=== PATIENT | male | born 1955 | race African-American/Black ===

== ENCOUNTER 2020-01-07 10:44 | Inpatient (IN) | payer BC ==
[2020-01-01 17:04] LABS: BASOPHILS % (AUTO) 0.4 % (0-1); EOSINOPHILS # (AUTO) 0.1 X10'3 (0-0.9); EOSINOPHILS % (AUTO) 1.9 % (0-6); LYMPHOCYTES % (AUTO) 44.5 % (21-51); MEAN CORPUSCULAR HEMOGLOBIN 28.5 PG (27.0-31.0); MEAN CORPUSCULAR HGB CONC 32.4 g/dL (33.0-36.5); MEAN CORPUSCULAR VOLUME 88.1 FL (78-98); MEAN PLATELET VOLUME 8.6 FL (7.4-10.4); MONOCYTES # (AUTO) 0.4 X10'3 (0-0.9); MONOCYTES % (AUTO) 9.3 % (2-12); NEUTROPHILS # (AUTO) 1.9 X10'3 (1.8-7.7); NEUTROPHILS % (AUTO) 43.9 % (42-75); PRE OP HEMATOCRIT 47.5 % (42.0-52.0); PRE OP HEMOGLOBIN 15.4 g/dL (14.0-17.9); PRE OP PLATELET COUNT 210 X10'3 (140-440); RED BLOOD COUNT 5.39 X10'6 (4.70-6.10); RED CELL DISTRIBUTION WIDTH 15.7 % (11.5-14.5)
[2020-01-01 17:17] LABS: ALBUMIN 4.2 G/DL (3.4-5.0); ALBUMIN/GLOBULIN RATIO 1.2 (1.1-1.5); ALKALINE PHOSPHATASE 101 IU/L (46-116); BLOOD UREA NITROGEN 19 MG/DL (7-18); BUN/CREATININE RATIO 19.4 (5.4-32.0); CALCIUM 9.5 MG/DL (8.5-10.1); CHLORIDE 105 MMOL/L (99-107); CREATININE 0.98 MG/DL (0.60-1.10); PRE OP ALT 38 U/L (30-65); PRE OP ANION GAP 5 (8-16); PRE OP AST 21 U/L (10-37); PRE OP BILIRUB, TOTAL 0.4 MG/DL (0.0-1.0); PRE OP GLUCOSE 95 MG/DL (70-104); PRE OP POTASSIUM 3.9 MMOL/L (3.4-5.1); PRE OP SODIUM 142 MMOL/L (135-145); TOTAL CARBON DIOXIDE 31.8 MMOL/L (24-32); TOTAL PROTEIN 7.6 G/DL (6.4-8.2); eGFR > 90 ML/MIN
[2020-01-07] VITALS (15 sets, daily range): BP systolic 105–169; BP diastolic 59–103
[~2020-01-07] VITALS: Ht 188 cm; Wt 122.0 kg
[~2020-01-07 10:44] MED LIST: ACET-2144 PO; DICL35CA PO; MULT-1085 PO; NAPR220T67 PO; NORMAL SALINE IV ONE; OLME1TAB82 PO; TRANEXAMIC ACID IV ONE; ceFAZolin inj. 3,000 MG in normal saline 100ml IV soln 100 ML IV ONE; famotidine 20mg tablet PO ONE; ringers solution, lacted 1,000 ML IV SCH; vancomycin 1,500 MG in NS 300ml IV soln IV ONE
[2020-01-07] MEDS ORDERED: ringers solution, lacted 1,000 ML IV SCH (13:11)
[2020-01-07] MEDS ORDERED: proCHLORperazine 10 MG/2 ml inj IV PRN (13:15)
[2020-01-07] MEDS ORDERED: morphine 4 MG/ML inj SYRINge IV PRN (13:15)
[2020-01-07] MEDS ORDERED: meperidine/PF 25mg/ml syringe IV PRN ×3 (13:15)
[2020-01-07] MEDS ORDERED: morphine 2 MG/ML inj. syringe IV PRN (13:15)
[2020-01-07] MEDS ORDERED: ondansetron/PF 4mg/2ml inj IV PRN ×2 (13:15→18:50)
[2020-01-07] MEDS ORDERED: ROPIVAcaine 0.2%/PF PUMP/bolus 550 ML INTERSCALE SCH (15:13)
[2020-01-07] MEDS ORDERED: ROPIVAcaine 0.2% (10 MG/5 ML) BOLUS INJECTION INTERSCALE PRN (15:15)
[2020-01-07] MEDS ORDERED: ketorolac trometh. 30mg/ml inj. ONE (15:39)
[2020-01-07] MEDS ORDERED: ROPIVAcaine 0.5% (5mg/ml) 30ml vial ONE ×2 (15:39→16:19)
[2020-01-07] MEDS ORDERED: MIDAZolam 1mg/ml 10ml vial ONE (16:15)
[2020-01-07] MEDS ORDERED: fentaNYL/PF 50MCG/1 ML 2ML syringe ONE (16:15)
[2020-01-07] MEDS ORDERED: BUPIVAcaine/dex-water/PF 7.5 mg/ml 2ml ampul ONE (16:22)
[2020-01-07] MEDS ORDERED: ePHEDrine 50MG/ML INJ. ONE (16:22)
[2020-01-07] MEDS: potassium cl 20mEq in 1/2 NS 1,000 ML IV SCH (18:48)
[2020-01-07] MEDS ORDERED: magnesium hydroxide 30ml (MOM) UD suspension PO PRN (18:50)
[2020-01-07] MEDS ORDERED: acetaminophen 325mg tablet PO PRN (18:50)
[2020-01-07] MEDS ORDERED: diphenhydrAMINE 25mg capsule PO PRN ×2 (18:50)
[2020-01-07] MEDS ORDERED: HYDROmorphone inj. 0.5 MG/0.5 ML DISP.SYRIN IV PRN (18:50)
[2020-01-07] MEDS ORDERED: bisacodyl 10mg suppository rectal RC PRN (18:50)
[2020-01-07] MEDS ORDERED: HYDROmorphone 1 mg/ml syringe IV PRN (18:50)
[2020-01-07] MEDS ORDERED: oxyCODONE IR 5mg (immed. release) tablet PO PRN ×2 (18:50)
[2020-01-07] MEDS ORDERED: ACETAMINOPHEN 650 MG PO PRN (18:50)
--- NOTE | 2020-01-07 19:13 | NUR ---
Received from OR via , accompanied by Anesthesiologist DR WORLEY and report given by Anesthesiolgist. AWAKENS TO VOICE. VITALS STABLE. DRESSING DI. RELL PAIN. SENSATION TO BILAT FEET. HERNANDEZ WITH CLEAR URINE.
[2020-01-07] MEDS ORDERED: vancomycin/NS 1 GM ADD-VANTAGE 250 ML IV SCH (20:00)
--- NOTE | 2020-01-07 20:13 | NUR ---
Report called to receiving nurse. Transferred via BED Belongings . Special Issues communicated to receiving nurse.AWAKE AND ORIENTED. VITALS STABLE. DRESSING DI. RELL PAIN. TO ORTHO RM 2015B AT THIS TIME.
[2020-01-07] MEDS ORDERED: sennosides 8.6mg tablet PO SCH (21:00)
[2020-01-07] MEDS ORDERED: NORMAL SALINE IV ONE (21:50)
[2020-01-07] MEDS ORDERED: TRANEXAMIC ACID IV ONE (21:50)
[2020-01-07] MEDS: acetaminophen 325mg tablet PO SCH (22:14)
[2020-01-08 00:05] VITALS: BP 145/86
[2020-01-08] MEDS: ceFAZolin 1GM/D5W- ADD-VANTAGE 50 ML IV SCH ×2 (00:30→08:41)
[2020-01-08 02:00] VITALS: BP 147/92
[2020-01-08] MEDS: acetaminophen 325mg tablet PO SCH ×2 (02:30→07:11)
[2020-01-08] MEDS: potassium cl 20mEq in 1/2 NS 1,000 ML IV SCH (02:48)
[2020-01-08 06:00] VITALS: BP 150/90
--- NOTE | 2020-01-08 06:30 | NUR ---
Problems reprioritized. Patient report given, questions answered & plan of care reviewed with CYRIL Manzano.
[2020-01-08 07:39] LABS: BASOPHILS % (AUTO) 0 % (0-1); EOSINOPHILS % (AUTO) 0 % (0-6); HEMATOCRIT 43.6 % (42.0-52.0); HEMOGLOBIN 14.2 g/dl (14.0-17.9); LYMPHOCYTES % (AUTO) 11.8 % (21-51); MEAN CORPUSCULAR HEMOGLOBIN 28.3 PG (27.0-31.0); MEAN CORPUSCULAR HGB CONC 32.6 g/dL (33.0-36.5); MEAN CORPUSCULAR VOLUME 86.9 FL (78-98); MEAN PLATELET VOLUME 8.8 FL (7.4-10.4); MONOCYTES # (AUTO) 0.3 X10'3 (0-0.9); MONOCYTES % (AUTO) 3.1 % (2-12); NEUTROPHILS % (AUTO) 85.1 % (42-75); PLATELET COUNT 212 X10'3 (140-440); RED BLOOD COUNT 5.02 X10'6 (4.70-6.10); RED CELL DISTRIBUTION WIDTH 15.1 % (11.5-14.5); WHITE BLOOD COUNT 8.3 X10'3 (4.5-11.0)
[2020-01-08] MEDS ORDERED: HYDROchlorothiazide 12.5mg capsule PO SCH (08:00)
[2020-01-08] MEDS ORDERED: DICLOFENAC 35 MG PO SCH (08:00)
[2020-01-08] MEDS ORDERED: losartan 50mg tablet PO SCH (08:00)
[2020-01-08] MEDS ORDERED: ASPI-1 PO (08:21)
[2020-01-08] MEDS ORDERED: DICL35CA PO (08:21)
[2020-01-08] MEDS ORDERED: ONQPUMP ADDCANAL (08:21)
[2020-01-08 08:26] LABS: ANION GAP 8 (8-16); CHLORIDE 103 MMOL/L (99-107); POTASSIUM 4.3 MMOL/L (3.5-5.1); SODIUM 138 MMOL/L (135-145); TOTAL CARBON DIOXIDE 26.6 MMOL/L (24-32)
[2020-01-08] MEDS ORDERED: aspirin 325mg tablet PO SCH (08:30)
[2020-01-08 10:09] VITALS: BP 138/86
--- NOTE | 2020-01-08 11:09 | NUR ---
Patient ready for discharge. PIV removed, cannula intact. Prescriptions were e scripted to the pharmacy. Discharge teaching given to patient. 2 island dressing sent with patient. Belongings gathered and sent home with patient.
[2020-01-09] MEDS ORDERED: acetaminophen 325mg tablet PO PRN (18:50)
== END 2020-01-08 11:20 | disposition home health service (06) | DRG 470 ==
LOC: PRE-OP 10:44 → ORTHO 4S 18:48
PROVIDERS: ADMIT Orthopaedic Surgery; ATTEND Orthopaedic Surgery
PROC: 3E0T3BZ Introduction of Anesthetic Agent into Peripheral Nerves and Plexi, Percutaneous Approach (ICD-10-PCS; 2020-01-07)
PROC: 0SRC069 Replacement of Right Knee Joint with Oxidized Zirconium on Polyethylene Synthetic Substitute, Cemented, Open Approach (ICD-10-PCS; principal; 2020-01-07 16:22)
DX: M17.11 Unilateral primary osteoarthritis, right knee (principal); E03.9 Hypothyroidism, unspecified; I10 Essential (primary) hypertension; E66.9 Obesity, unspecified; Z68.34 Body mass index [BMI] 34.0-34.9, adult; Z88.0 Allergy status to penicillin; Z88.5 Allergy status to narcotic agent; Z79.899 Other long term (current) drug therapy
CPT/HCPCS: 36415; 80051; 80053; 82948; 85025; 87081; 93005; 97116; 97161; 97530; G0378; J0690; J1885; J2250; J2795; J3010; J3370; J3490; J7040; J7120

== ENCOUNTER 2020-06-02 10:26 | Day surgery (SDC) | payer BC ==
[2020-05-25 12:32] LABS: BASOPHILS % (AUTO) 0.7 % (0-1); EOSINOPHILS % (AUTO) 0.8 % (0-6); LYMPHOCYTES # (AUTO) 1.8 X10'3 (1.1-4.8); LYMPHOCYTES % (AUTO) 41.7 % (21-51); MEAN CORPUSCULAR HEMOGLOBIN 27.2 PG (27.0-31.0); MEAN CORPUSCULAR HGB CONC 32.1 g/dL (33.0-36.5); MEAN CORPUSCULAR VOLUME 84.9 FL (78-98); MEAN PLATELET VOLUME 8.3 FL (7.4-10.4); MONOCYTES # (AUTO) 0.5 X10'3 (0-0.9); MONOCYTES % (AUTO) 10.5 % (2-12); NEUTROPHILS % (AUTO) 46.3 % (42-75); PRE OP HEMATOCRIT 48.1 % (42.0-52.0); PRE OP HEMOGLOBIN 15.4 g/dL (14.0-17.9); PRE OP PLATELET COUNT 230 X10'3 (140-440); RED BLOOD COUNT 5.66 X10'6 (4.70-6.10); RED CELL DISTRIBUTION WIDTH 16.1 % (11.5-14.5)
[2020-05-25 12:43] LABS: ALBUMIN 4.2 G/DL (3.4-5.0); ALBUMIN/GLOBULIN RATIO 1.1 (1.1-1.5); ALKALINE PHOSPHATASE 112 IU/L (46-116); BLOOD UREA NITROGEN 17 MG/DL (7-18); BUN/CREATININE RATIO 14.9 (5.4-32.0); CALCIUM 9.6 MG/DL (8.5-10.1); CHLORIDE 105 MMOL/L (99-107); CREATININE 1.14 MG/DL (0.60-1.10); PRE OP ALT 35 U/L (30-65); PRE OP ANION GAP 3 (8-16); PRE OP AST 17 U/L (10-37); PRE OP BILIRUB, TOTAL 0.4 MG/DL (0.0-1.0); PRE OP GLUCOSE 94 MG/DL (70-104); PRE OP POTASSIUM 3.9 MMOL/L (3.4-5.1); PRE OP SODIUM 143 MMOL/L (135-145); TOTAL CARBON DIOXIDE 34.7 MMOL/L (24-32); eGFR 78 ML/MIN
[2020-06-02] VITALS (17 sets, daily range): BP systolic 103–167; BP diastolic 44–93
[~2020-06-02] VITALS: Ht 185.4 cm; Wt 121.6 kg
[~2020-06-02 10:26] MED LIST changes: -ACET-2144 PO; -NAPR220T67 PO; -NORMAL SALINE IV ONE; +OLME-7 PO; -OLME1TAB82 PO; +SUMA25TA35 PO; -TRANEXAMIC ACID IV ONE; -ringers solution, lacted 1,000 ML IV SCH; +tranexamic acid inj. 1,200 MG in normal saline 100ml IV soln 88 ML IV ONE
[2020-06-02] MEDS: ringers solution, lacted 1,000 ML IV SCH ×2 (11:25→17:53)
[2020-06-02] MEDS ORDERED: tetracaine 1% (10mg/ml) pres. free inj. ONE (12:45)
[2020-06-02] MEDS ORDERED: fentaNYL/PF 50MCG/1 ML 2ML syringe ONE (12:47)
[2020-06-02] MEDS ORDERED: MIDAZolam 1mg/ml 10ml vial ONE (12:47)
[2020-06-02] MEDS ORDERED: ketorolac trometh. 30mg/ml inj. ONE (13:18)
[2020-06-02] MEDS ORDERED: ROPIVAcaine 0.5% (5mg/ml) 30ml vial ONE ×2 (13:18→15:58)
[2020-06-02] MEDS ORDERED: meperidine/PF 25mg/ml syringe IV PRN ×3 (14:00)
[2020-06-02] MEDS ORDERED: ROPIVAcaine 0.2%/PF PUMP/bolus 550 ML ADDCANAL SCH (14:00)
[2020-06-02] MEDS ORDERED: proCHLORperazine 10 MG/2 ml inj IV PRN (14:00)
[2020-06-02] MEDS ORDERED: ondansetron/PF 4mg/2ml inj IV PRN ×2 (14:00→16:50)
[2020-06-02] MEDS ORDERED: ROPIVAcaine 0.2% (10 MG/5 ML) BOLUS INJECTION ADDCANAL PRN (14:00)
[2020-06-02] MEDS ORDERED: ringers solution, lacted 1,000 ML IV SCH (14:00)
--- NOTE | 2020-06-02 16:36 | NUR ---
Received from OR via , accompanied by Anesthesiologist DR MONROY and report given by Anesthesiolgist. AWAKENS TO VOICE. VITALS STABLE. DRESSING DI. RELL PAIN. SENSATION AT [place].
[2020-06-02] MEDS ORDERED: diphenhydrAMINE 25mg capsule PO PRN ×2 (16:50)
[2020-06-02] MEDS ORDERED: magnesium hydroxide 30ml (MOM) UD suspension PO PRN (16:50)
[2020-06-02] MEDS ORDERED: oxyCODONE IR 5mg (immed. release) tablet PO PRN ×2 (16:50)
[2020-06-02] MEDS ORDERED: HYDROmorphone 1 mg/ml syringe IV PRN (16:50)
[2020-06-02] MEDS ORDERED: acetaminophen 325mg tablet PO PRN (16:50)
[2020-06-02] MEDS ORDERED: HYDROmorphone inj. 0.5 MG/0.5 ML DISP.SYRIN IV PRN (16:50)
[2020-06-02] MEDS ORDERED: SUMAtriptan 25 MG tablet PO PRN (16:50)
[2020-06-02] MEDS ORDERED: bisacodyl 10mg suppository rectal RC PRN (16:50)
--- NOTE | 2020-06-02 17:36 | NUR ---
Report called to receiving nurse. Transferred via BED Belongings . Special Issues communicated to receiving nurse. AWAKE AND ORIENTED. VITALS STABLE. DRESSING DI. RELL PAIN. TO ORTHO RM [id number] AT THIS TIME.
--- NOTE | 2020-06-02 18:18 | NUR ---
Problems reprioritized. Patient report given, questions answered & plan of care reviewed with Shannon NAM.
[2020-06-02] MEDS ORDERED: TRANEXAMIC ACID IV ONE (20:00)
[2020-06-02] MEDS ORDERED: vancomycin/NS 1 GM ADD-VANTAGE 250 ML IV SCH (20:00)
[2020-06-02] MEDS ORDERED: NORMAL SALINE IV ONE (20:00)
[2020-06-02] MEDS: acetaminophen 325mg tablet PO SCH (20:07)
[2020-06-02] MEDS: potassium cl 20mEq in 1/2 NS 1,000 ML IV SCH (20:16)
[2020-06-02] MEDS ORDERED: sennosides 8.6mg tablet PO SCH (21:00)
[2020-06-02] MEDS: ceFAZolin/D5W- 1GM premix 50 ML IV SCH (23:51)
[2020-06-03 02:00] VITALS: BP 134/79
[2020-06-03] MEDS: acetaminophen 325mg tablet PO SCH ×2 (02:30→08:26)
[2020-06-03 06:00] VITALS: BP 153/91
--- NOTE | 2020-06-03 06:00 | NUR ---
Patient in room ORTHO 4015. I have received report from Grecia and had the opportunity to ask questions and assume patient care.
--- NOTE | 2020-06-03 06:31 | NUR ---
Problems reprioritized. Patient report given, questions answered & plan of care reviewed with CYRIL Soto.
[2020-06-03 06:56] LABS: BASOPHILS % (AUTO) 0.2 % (0-1); EOSINOPHILS % (AUTO) 0.4 % (0-6); HEMATOCRIT 39.8 % (42.0-52.0); HEMOGLOBIN 13.1 g/dl (14.0-17.9); LYMPHOCYTES # (AUTO) 1.3 X10'3 (1.1-4.8); LYMPHOCYTES % (AUTO) 18.4 % (21-51); MEAN CORPUSCULAR HEMOGLOBIN 27.6 PG (27.0-31.0); MEAN CORPUSCULAR HGB CONC 32.8 g/dL (33.0-36.5); MEAN CORPUSCULAR VOLUME 84.2 FL (78-98); MEAN PLATELET VOLUME 8.4 FL (7.4-10.4); MONOCYTES # (AUTO) 0.5 X10'3 (0-0.9); MONOCYTES % (AUTO) 7.6 % (2-12); NEUTROPHILS % (AUTO) 73.4 % (42-75); PLATELET COUNT 195 X10'3 (140-440); RED BLOOD COUNT 4.73 X10'6 (4.70-6.10); RED CELL DISTRIBUTION WIDTH 15.7 % (11.5-14.5); WHITE BLOOD COUNT 6.8 X10'3 (4.5-11.0)
[2020-06-03] MEDS: potassium cl 20mEq in 1/2 NS 1,000 ML IV SCH ×2 (07:15→08:50)
[2020-06-03 07:20] LABS: ANION GAP 8 (8-16); CHLORIDE 106 MMOL/L (99-107); POTASSIUM 3.7 MMOL/L (3.5-5.1); SODIUM 143 MMOL/L (135-145); TOTAL CARBON DIOXIDE 28.9 MMOL/L (24-32)
[2020-06-03] MEDS ORDERED: losartan 50mg tablet PO SCH (08:00)
[2020-06-03] MEDS ORDERED: DICLOFENAC SUBMICRONIZED 35 MG PO SCH (08:00)
[2020-06-03] MEDS ORDERED: HYDROchlorothiazide 12.5mg capsule PO SCH (08:00)
[2020-06-03] MEDS: ceFAZolin/D5W- 1GM premix 50 ML IV SCH (08:25)
[2020-06-03] MEDS ORDERED: aspirin 325mg tablet PO SCH (08:30)
[2020-06-03 10:00] VITALS: BP 117/72
[2020-06-03] MEDS ORDERED: ASPI-1 PO (13:18)
--- NOTE | 2020-06-03 14:13 | NUR ---
Reviewed discharge instructions with pt. Pt verbalized understanding. Pt is alert, oriented and does not have c/o pain at this time. Pt was wheeled downstairs to be driven home by his spouse. All of pts belongings were returned to pt.
[2020-06-04] MEDS ORDERED: acetaminophen 325mg tablet PO PRN (16:50)
== END 2020-06-03 14:11 | disposition home or self-care (01) ==
LOC: PAS 10:26 → ORTHO 4S 16:47 → UNDOADMIN 16:47 → PAS 06-03 14:11
PROVIDERS: ATTEND Orthopaedic Surgery
DX: M17.32 Unilateral post-traumatic osteoarthritis, left knee (principal); Z20.828 Contact with and (suspected) exposure to other viral communicable diseases; I10 Essential (primary) hypertension; G43.909 Migraine, unspecified, not intractable, without status migrainosus; M19.90 Unspecified osteoarthritis, unspecified site; E66.9 Obesity, unspecified; Z68.37 Body mass index [BMI] 37.0-37.9, adult; G89.18 Other acute postprocedural pain; Z88.0 Allergy status to penicillin; Z88.5 Allergy status to narcotic agent; Z88.8 Allergy status to other drugs, medicaments and biological substances; Z96.651 Presence of right artificial knee joint; Z72.89 Other problems related to lifestyle; Z96.641 Presence of right artificial hip joint; Z98.890 Other specified postprocedural states; Z79.899 Other long term (current) drug therapy
CPT/HCPCS: 20985; 27447; 36415; 64448; 76937; 80051; 80053; 82948; 85025; 87081; 87635; C1713; C1776; J0690; J1885; J2175; J2250; J2795; J3010; J3370; J7040; A4215; A6258; A7000; G0378; J3480; J7120